=== PATIENT | male | born 1945 | race African-American/Black ===

== ENCOUNTER → 2020-05-24 | Outpatient (CLI) | payer MEDICARE ==
--- NOTE | 2020-05-25 12:58 | RAD ---
Bilateral lower extremity superficial venous ultrasound study for venous insufficiency, right leg dalia ma and numbness. TECHNIQUE AND FINDINGS: Real-time grayscale and color spectral Doppler evaluation of the superficial veins of both lower extremities is performed. The right greater saphenous origin measures 5 mm in hugo meter, and is patent with no evidence of reflux with Valsalva. The right lesser saphenous vein measur es 3 mm in diameter at its origin and is also patent with no evidence of reflux. The left greater sap henous vein at its origin measuring 8 mm in diameter and is patent with no evidence of reflux with Va lsalva. The left lesser saphenous vein measures 3 mm in diameter at its origin and is patent with no evidence of reflux. IMPRESSION: 1. No evidence of reflux involving the proximal bilateral greater and lesser saphenous veins. Electronically signed by: Fred Catherine MD (05/25/2020 12:56 PM) [id number]
== END ==
LOC: US 09:46
PROVIDERS: ATTEND Internal Medicine
DX: R22.41 Localized swelling, mass and lump, right lower limb (principal); R20.2 Paresthesia of skin
CPT/HCPCS: 93970